=== PATIENT | female | born 1975 | race Caucasian/White ===

== ENCOUNTER → 2021-11-21 | Outpatient (CLI) | payer OTHER ==
[~2021-11-21] VITALS: Ht 112 cm; Wt 98.0 kg
[~2021-11-21] MED LIST: LIDOCAINE 1% INJ 20 ML VIAL INJ ONE; LIDOCAINE 1% INJ 20 ML VIAL ONE
[2021-11-21 11:13] VITALS: BP 131/80
--- NOTE | 2021-11-21 11:44 | Diagnostic Imaging Report ---
INDICATION: Left breast calcifications. PROCEDURE: The patient presents for stereotactic biopsy. The patient was brought to the stereotactic suite, placed in a chair in a sitting upright position. The left breast was positioned mediolateral. Tomographic images of the left breast were obtained. The cluster microcalcifications in the central left breast were targeted. All images were viewed on a dedicated workstation. The medial left breast was then prepped and draped in the usual sterile fashion. A small amount of 1% lidocaine was utilized for local anesthesia. An 8-gauge vacuum-assisted needle was advanced into the left breast from a mediolateral approach, and placed per stereotactic coordinates. Four core samples were obtained with a vacuum-assisted device. Specimen radiograph demonstrates numerous calcifications within sample labeled numbers 2 and 5. A marker clip was then deployed. Needle was removed and hemostasis was obtained. Postprocedure CC and ML mammography was performed demonstrating the marker clip in the central left breast. There may be slight migration of the clip lateral to the nipple line. IMPRESSION: Successful stereotactic biopsy of left breast microcalcifications, utilizing the vacuum-assisted device. Pathology results are currently pending. Dictated by: Dictated on workstation # [id number]
== END ==
LOC: RAD 10:30
PROVIDERS: ATTEND Family Medicine
DX: N63.20 Unspecified lump in the left breast, unspecified quadrant (principal)
CPT/HCPCS: 19081; A4648